=== PATIENT | female | born 1975 | race Caucasian/White ===

== ENCOUNTER 2021-01-09 09:34 | Outpatient (RCR) | payer BC ==
[~2021-01-09] VITALS: Ht 165.1 cm; Wt 87.5 kg
[2021-01-09 10:05] LABS: HEMOGLOBIN 10.2 g/dl (12.5-16.0); MEAN CELL VOLUME 99 fl (80.0-100.0); MEAN CORPUSCULAR HEMOGLOBIN 31 pg (27.0-31.0); MEAN CORPUSCULAR HGB CONC 31 g/dl (33.0-37.0); MEAN PLATELET VOLUME 12.3 fl (7.4-10.4); PLATELET COUNT 190 K/mm3 (130-400); RED BLOOD COUNT 3.34 M/mm3 (4.10-5.30); REDCELL DISTRIBUTION WIDTH-CV 18.8 % (11.5-14.5)
[2021-01-09 10:06] LABS: HEMATOCRIT 33.1 % (37.0-47.0)
[2021-01-09] MEDS ORDERED: IRON TABLETS325 MG PO (10:18)
[2021-01-09] MEDS ORDERED: ONCE DAILY1 TA1 PO (10:19)
[2021-01-09] MEDS ORDERED: PRINZIDE 25 MG-1 TAB PO (10:20)
[2021-01-09] MEDS ORDERED: DEPO-PROVE150 MG/1 M IM (10:21)
[2021-01-09 10:24] VITALS: BP 102/86; PULSE 62; TEMP 98
== END 2021-01-09 10:26 | disposition home or self-care (01) ==
LOC: EUO 09:34
PROVIDERS: Student in an Organized Health Care Education/Training Program
DX: Z01.818 Encounter for other preprocedural examination (principal); D50.0 Iron deficiency anemia secondary to blood loss (chronic)

== ENCOUNTER → 2021-04-14 | Outpatient (CLI) | payer BC ==
[~2021-04-14] MED LIST: DEPO-PROVE150 MG/1 M IM; IRON TABLETS325 MG PO; ONCE DAILY1 TA1 PO; PRINZIDE 25 MG-1 TAB PO
== END ==
LOC: COL.RAD 13:52
DX: K76.0 Fatty (change of) liver, not elsewhere classified (principal); Z90.49 Acquired absence of other specified parts of digestive tract
CPT/HCPCS: Q9967

== ENCOUNTER → 2021-07-26 | Outpatient (CLI) | payer BC | LOC: COL.RAD 14:08 | DX: N82.3 Fistula of vagina to large intestine (principal) | CPT/HCPCS: Q9967 ==